=== PATIENT | female | born 1965 | race African-American/Black ===

== ENCOUNTER 2021-01-27 16:10 | Inpatient (IN) ==
[2021-01-27 17:15] LABS: ABG Base Excess 3.1 MMOL/L (-2.5-2.5); ABG HCO3 26.9 MMOL/L (20-26); ABG Oxygen Saturation 88.6 % (95-100); ABG PCO2 37.3 MM HG (35-48); ABG PH 7.462 (7.35-7.45); ABG PO2 55.8 MM HG (80-95); ABG TCO2 22.3 MMOL/L (23-27); Allen Test Positive; Pt O2 Delivery Device Room Air
[2021-01-27 17:18] LABS: Basophils # 0.1 10*3/uL (0.0-0.2); Basophils % 0.4 % (0.0-0.8); Eosinophils % 0.2 % (0.00-10.9); Hematocrit 45.7 VOL% (35.7-47.0); Hemoglobin 15.6 GM/DL (12.0-16.0); Immature Granulocytes % 0.5 %; Immature Granulocytes Absolute 0.07 #; Lymphocytes # 1.4 10*3/uL (1.4-4.0); Lymphocytes % 9.6 % (21.3-54.2); Mean Corpuscular HGB Conc 34.1 GM/DL (32-36); Mean Corpuscular Volume 91.2 FL (87-102); Mean Platelet Volume 11.4 FL (9.6-12.0); Monocytes % 4.2 % (1.7-12.7); Neutrophils % 85.1 % (38.7-73.9); Platelet Count 215 T/CUMM (130-400); Red Blood Count 5.01 MC/CUMM (3.8-5.5); Red Cell Distribution Width 12.7 % (9.3-17.3); White Blood Count 14.8 T/CUMM (4-12)
[2021-01-27 17:48] LABS: Bilirubin,Total 0.6 MG/DL (0.2-1.0); Calcium 9.2 MG/DL (8.5-10.1); Osmolality,Calculated 274.8 MOS/KG (273-304); Potassium 3.2 MMOL/L (3.5-5.1); Total Protein 7.8 G/DL (6.4-8.2)
[2021-01-27] MEDS ORDERED: ENOXAPARIN 30 MG/0.3 ML SYRINGE SUBCUT STA (18:37)
[2021-01-27] MEDS ORDERED: ASPIRIN CHEW 81 MG TABLET PO STA (18:37)
[2021-01-27] MEDS ORDERED: POTASSIUM CHLORIDE 20 MEQ TABLET PO STA (18:38)
[2021-01-27] MEDS ORDERED: ASPIRIN 325 MG TABLET ONE (18:42)
[2021-01-27] MEDS ORDERED: ENOXAPARIN 120 MG/0.8 ML SYRINGE SUBCUT ONE (18:45)
[2021-01-27] MEDS ORDERED: cefTRIAXone 1,000 MG in SODIUM CHLORIDE 0.9% 100 ML IV STA (19:20)
[2021-01-27] MEDS ORDERED: GLUCAGON 1 MG VIAL IM PRN (20:07)
[2021-01-27] MEDS ORDERED: guaiFENesin/DM ER 600-30 MG TABLET PO PRN (20:07)
[2021-01-27] MEDS ORDERED: diphenhydrAMINE CAP 25 MG CAPSULE PO PRN (20:07)
[2021-01-27] MEDS ORDERED: hydrALAZINE 20 MG/1 ML VIAL IV PRN (20:07)
[2021-01-27] MEDS ORDERED: DEXTROSE 50% 25 GM/50 ML VIAL IV PRN (20:07)
[2021-01-27] MEDS ORDERED: ONDANSETRON 4 MG/2 ML VIAL IV PRN (20:07)
[2021-01-27] MEDS ORDERED: LORazepam 2 MG/1 ML VIAL IV PRN (20:23)
[2021-01-27] MEDS ORDERED: ENOXAPARIN 40 MG/0.4 ML SYRINGE SUBCUT SCH (20:30)
[2021-01-27] MEDS: PIPERACILLIN/TAZOBACTAM 3,375 MG in SODIUM CHLORIDE 0.9% 100 ML IV SCH (22:27)
[2021-01-28] MEDS: ALBUTEROL 2.5 MG/3 ML NEB RESP TX SCH ×4 (01:45→19:27)
[2021-01-28] MEDS: PIPERACILLIN/TAZOBACTAM 3,375 MG in SODIUM CHLORIDE 0.9% 100 ML IV SCH ×3 (04:07→21:43)
[2021-01-28 06:27] LABS: Basophils % 0.4 % (0.0-0.8); Eosinophils % 0.2 % (0.00-10.9); Hematocrit 40.2 VOL% (35.7-47.0); Hemoglobin 14.1 GM/DL (12.0-16.0); Immature Granulocytes % 0.4 %; Immature Granulocytes Absolute 0.04 #; Lymphocytes # 1.5 10*3/uL (1.4-4.0); Lymphocytes % 14.9 % (21.3-54.2); Mean Corpuscular HGB Conc 35.1 GM/DL (32-36); Mean Corpuscular Volume 90.3 FL (87-102); Mean Platelet Volume 11.6 FL (9.6-12.0); Monocytes % 6.2 % (1.7-12.7); Neutrophils % 77.9 % (38.7-73.9); Platelet Count 184 T/CUMM (130-400); Red Blood Count 4.45 MC/CUMM (3.8-5.5); Red Cell Distribution Width 12.6 % (9.3-17.3); White Blood Count 9.9 T/CUMM (4-12)
[2021-01-28 06:48] LABS: Albumin 3.4 G/DL (3.4-5.0); Bilirubin,Total 0.7 MG/DL (0.2-1.0); Calcium 8.6 MG/DL (8.5-10.1); Osmolality,Calculated 278.5 MOS/KG (273-304); Potassium 3.4 MMOL/L (3.5-5.1); Risk Ratio 4.83; Total Protein 7.3 G/DL (6.4-8.2); VLDL Cholesterol 44.2 MG/DL
[2021-01-28] MEDS ORDERED: MAGNESIUM SULF RIDER 2 GM/50 ML PREMIX IV ONE (07:43)
[2021-01-28] MEDS: THIAMINE 100 MG TABLET PO SCH (08:31)
[2021-01-28] MEDS: FOLIC ACID 1 MG TABLET PO SCH (08:31)
[2021-01-28] MEDS: MULTIVITAMIN (CENTRUM) TABLET PO SCH (08:31)
[2021-01-28] MEDS: ASPIRIN CHEW 81 MG TABLET PO SCH (08:31)
[2021-01-28] MEDS: PANTOPRAZOLE 40 MG TABLET PO SCH (08:31)
[2021-01-28] MEDS ORDERED: POTASSIUM CHLORIDE RIDER 10 MEQ/100 ML PREMIX IV PRN (11:20)
[2021-01-28] MEDS ORDERED: POTASSIUM CHLORIDE 20 MEQ TABLET PO ONE (13:46)
[2021-01-28] MEDS: carvediloL 6.25 MG TABLET PO SCH ×2 (14:18→21:30)
[2021-01-28 20:51] LABS: Bilirubin,Urine Negative (Negative); Blood, Urine Moderate mg/dL (Negative); Glucose,Urine (UA) Negative (Negative); Ketones,Urine Negative (Negative); Mucus,Urine Occasional /LPF (Occasional); Nitrite,Urine Negative (Negative); Protein,Urine Negative; RBC,Urine 2 /HPF (0-4); Squamous Epithelial Cell,Urine Occasional /HPF (0-10); Urine Appearance CLEAR (Clear); Urine Color Yellow (Yellow); Urine Specific Gravity 1.019 (1.001-1.035); Urine Urobilinogen < 2.0 EU/DL (0.2-1.0)
[2021-01-28] MEDS: ENOXAPARIN 40 MG/0.4 ML SYRINGE SUBCUT SCH (21:30)
[2021-01-28] MEDS: ATORVASTATIN 10 MG TABLET PO SCH (21:31)
[2021-01-29] MEDS: ALBUTEROL 2.5 MG/3 ML NEB RESP TX SCH ×4 (00:48→19:19)
[2021-01-29] MEDS: PIPERACILLIN/TAZOBACTAM 3,375 MG in SODIUM CHLORIDE 0.9% 100 ML IV SCH ×3 (05:16→23:28)
[2021-01-29 05:49] LABS: Basophils % 0.3 % (0.0-0.8); Eosinophils # 0.1 10*3/uL (0.0-0.87); Eosinophils % 1.8 % (0.00-10.9); Hematocrit 41.4 VOL% (35.7-47.0); Hemoglobin 14.3 GM/DL (12.0-16.0); Immature Granulocytes % 0.3 %; Immature Granulocytes Absolute 0.02 #; Lymphocytes # 1.6 10*3/uL (1.4-4.0); Lymphocytes % 19.9 % (21.3-54.2); Mean Corpuscular HGB Conc 34.5 GM/DL (32-36); Mean Corpuscular Volume 91.8 FL (87-102); Mean Platelet Volume 12.3 FL (9.6-12.0); Monocytes % 8.2 % (1.7-12.7); Neutrophils % 69.5 % (38.7-73.9); Platelet Count 181 T/CUMM (130-400); Red Blood Count 4.51 MC/CUMM (3.8-5.5); Red Cell Distribution Width 12.7 % (9.3-17.3); White Blood Count 7.9 T/CUMM (4-12)
[2021-01-29 06:12] LABS: Calcium 9.1 MG/DL (8.5-10.1); Osmolality,Calculated 277.5 MOS/KG (273-304); Potassium 3.6 MMOL/L (3.5-5.1)
[2021-01-29] MEDS: FOLIC ACID 1 MG TABLET PO SCH (08:56)
[2021-01-29] MEDS: THIAMINE 100 MG TABLET PO SCH (08:56)
[2021-01-29] MEDS: PANTOPRAZOLE 40 MG TABLET PO SCH (08:56)
[2021-01-29] MEDS: ASPIRIN CHEW 81 MG TABLET PO SCH (08:56)
[2021-01-29] MEDS: carvediloL 6.25 MG TABLET PO SCH ×2 (08:56→22:58)
[2021-01-29] MEDS: MULTIVITAMIN (CENTRUM) TABLET PO SCH (08:56)
[2021-01-29] MEDS ORDERED: MAGNESIUM HYDROXIDE SUSP 30 ML UDCUP PO PRN (09:00)
[2021-01-29] MEDS ORDERED: diphenhydrAMINE CAP 25 MG CAPSULE PO ONE (09:00)
[2021-01-29] MEDS ORDERED: DIAZEPAM 5 MG TABLET PO ONE (09:00)
[2021-01-29] MEDS ORDERED: NITROGLYCERIN DRIP 50 MG/250 ML BOTTLE IV ONE (12:04)
[2021-01-29] MEDS ORDERED: MIDAZOLAM 2 MG/2 ML VIAL ONE (12:04)
[2021-01-29] MEDS ORDERED: LIDOCAINE 1% 20 ML VIAL ONE (12:04)
[2021-01-29] MEDS ORDERED: VERAPAMIL 5 MG/2 ML VIAL ONE (12:05)
[2021-01-29] MEDS ORDERED: fentaNYL 100 MCG/2 ML VIAL ONE (12:05)
[2021-01-29] MEDS ORDERED: ENOXAPARIN 60 MG/0.6 ML SYRINGE ONE (12:30)
[2021-01-29] MEDS ORDERED: SODIUM CHLORIDE 0.9% 1,000 ML IV SCH (13:30)
[2021-01-29] MEDS ORDERED: POTASSIUM CHLORIDE 20 MEQ TABLET PO ONE (17:09)
[2021-01-29] MEDS: ASCORBIC ACID 500 MG TABLET PO SCH (22:58)
[2021-01-29] MEDS: ENOXAPARIN 40 MG/0.4 ML SYRINGE SUBCUT SCH (23:01)
[2021-01-29] MEDS: ATORVASTATIN 10 MG TABLET PO SCH (23:27)
[2021-01-30] MEDS: ALBUTEROL 2.5 MG/3 ML NEB RESP TX SCH ×2 (00:13→07:35)
[2021-01-30 06:14] LABS: Basophils % 0.5 % (0.0-0.8); Eosinophils # 0.3 10*3/uL (0.0-0.87); Hematocrit 39.3 VOL% (35.7-47.0); Hemoglobin 13.3 GM/DL (12.0-16.0); Immature Granulocytes % 0.4 %; Immature Granulocytes Absolute 0.03 #; Lymphocytes # 2.1 10*3/uL (1.4-4.0); Lymphocytes % 26.1 % (21.3-54.2); Mean Corpuscular HGB Conc 33.8 GM/DL (32-36); Mean Corpuscular Volume 92.9 FL (87-102); Mean Platelet Volume 12.2 FL (9.6-12.0); Monocytes % 8.5 % (1.7-12.7); Neutrophils % 60.5 % (38.7-73.9); Platelet Count 181 T/CUMM (130-400); Red Blood Count 4.23 MC/CUMM (3.8-5.5); Red Cell Distribution Width 12.6 % (9.3-17.3); White Blood Count 7.9 T/CUMM (4-12)
[2021-01-30 06:22] LABS: Calcium 8.6 MG/DL (8.5-10.1); Osmolality,Calculated 278.4 MOS/KG (273-304); Potassium 3.6 MMOL/L (3.5-5.1)
[2021-01-30] MEDS: PIPERACILLIN/TAZOBACTAM 3,375 MG in SODIUM CHLORIDE 0.9% 100 ML IV SCH (08:04)
[2021-01-30] MEDS: ASPIRIN CHEW 81 MG TABLET PO SCH (08:06)
[2021-01-30] MEDS: MULTIVITAMIN (CENTRUM) TABLET PO SCH (08:06)
[2021-01-30] MEDS: THIAMINE 100 MG TABLET PO SCH (08:07)
[2021-01-30] MEDS: carvediloL 6.25 MG TABLET PO SCH (08:07)
[2021-01-30] MEDS: ASCORBIC ACID 500 MG TABLET PO SCH (08:07)
[2021-01-30] MEDS: PANTOPRAZOLE 40 MG TABLET PO SCH (08:07)
[2021-01-30] MEDS: FOLIC ACID 1 MG TABLET PO SCH (08:07)
[2021-01-30] MEDS ORDERED: POTASSIUM CHLORIDE 20 MEQ TABLET PO ONE (08:21)
[2021-01-30] MEDS ORDERED: LOSARTAN 25 MG TABLET PO SCH (09:00)
[2021-01-30] MEDS ORDERED: AMIODARONE 200 MG TABLET PO SCH (10:15)
[2021-01-30] MEDS ORDERED: APIXABAN 5 MG TABLET PO SCH (10:15)
[2021-01-30 13:03] VITALS: BP 123/67
[2021-01-31] MEDS ORDERED: ASPIRIN EC 325 MG TABLET PO SCH (09:00)
== END 2021-01-30 13:23 | disposition home or self-care (01) | DRG 193 ==
LOC: N.EDINP 16:10 → N.ED 16:10 → N.TELES 21:32
PROVIDERS: ADMIT Internal Medicine; ATTEND Internal Medicine
PROC: CLCCHCL (ICD-10-PCS; 2021-01-29 14:45)